=== PATIENT | male | born 1940 | race Caucasian/White ===

== ENCOUNTER 2022-11-01 16:26 | Inpatient (IN) | payer MEDICARE ==
[2022-11-01 16:35] LABS: BASOPHILS ABSOLUTE AUTO 0.04 K/uL (0.00-0.10); BASOPHILS PERCENT AUTO 0.5 % (0.1-1.3); EOSINOPHILS ABSOLUTE AUTO 0.24 K/uL (0.00-0.40); EOSINOPHILS PERCENT AUTO 3.3 % (0.0-5.4); HEMATOCRIT 36.3 % (38.4-49.7); HEMOGLOBIN 12.1 g/dL (12.9-16.9); IMMATURE GRAN ABSOLUTE AUTO 0.04 K/uL (0.00-0.23); IMMATURE GRAN PERCENT AUTO 0.5 % (0.0-0.7); LYMPHOCYTES ABSOLUTE AUTO 1.65 K/uL (0.8-3.3); LYMPHOCYTES PERCENT AUTO 22.6 % (11.4-47.7); MEAN CORPUSCULAR HEMOGLOBIN 29.3 pg (31.6-35.5); MEAN CORPUSCULAR HGB CONC 33.3 g/dL (31.6-35.5); MEAN CORPUSCULAR VOLUME 87.9 fL (81.4-99.0); MONOCYTES ABSOLUTE AUTO 0.64 K/uL (0.20-0.90); MONOCYTES PERCENT AUTO 8.8 % (3.3-12.6); NEUTROPHILS ABSOLUTE AUTO 4.69 K/uL (1.0-7.6); NEUTROPHILS PERCENT AUTO 64.3 % (40.0-78.1); PLATELET COUNT,PLT 257 K/uL (130-375); RED BLOOD CELL COUNT 4.13 M/uL (4.14-5.76); WHITE BLOOD CELL COUNT,WBC 7.3 K/uL (3.2-11.0)
[2022-11-01 16:55] LABS: A/G RATIO 0.8 (1.2-2.2); ALANINE AMINOTRANSFERASE,ALT 22 U/L (12-78); ALBUMIN 3.5 g/dL (3.4-5.0); ALKALINE PHOSPHATASE 90 U/L (46-116); ASPARTATE AMNIOTRANSFERASE,AST 24 U/L (15-37); BILIRUBIN TOTAL 0.6 mg/dL (0.2-1.0); BLOOD UREA NITROGEN,BUN 18 mg/dL (7-18); CALCIUM 8.8 mg/dL (8.5-10.1); CARBON DIOXIDE,CO2 29 mmol/L (21-32); CHLORIDE,CL 100 mmol/L (100-108); CREATININE 1.1 mg/dL (0.8-1.3); EST CRCL DRUG DOSING (CG) 55.85 mL/min; ESTIMATED GFR 67 mL/min (>60); GLUCOSE RANDOM 161 mg/dL (74-106); POTASSIUM,K 3.6 mmol/L (3.6-5.2); PROTEIN TOTAL,TP 7.7 g/dL (6.4-8.2); SODIUM,NA 137 mmol/L (140-148)
[2022-11-01 16:56] LABS: ANION GAP 11.6 mmol/L (5.0-14.0)
[2022-11-01 16:58] LABS: PROTHROMBIN TIME 10.5 sec (9.2-10.6); PTT,PARTIAL THROMBOPLSTIN TIME 23.8 sec (21.8-27.3)
[2022-11-01] MEDS ORDERED: fentaNYL 50 MCG/ML SDV IVPUSH ONE (17:38)
[2022-11-01] MEDS ORDERED: Midazolam 1 MG/ML 5 ML SDV IVPUSH ONE (18:43)
[2022-11-01] MEDS ORDERED: Midazolam 1 MG/ML 5 ML SDV ONE (18:45)
[2022-11-01] MEDS ORDERED: Lidocaine 1% 50 ML MDV INJECT ONE (18:59)
[2022-11-01] MEDS: Lidocaine 1% 10 ML MDV ONE ×2 (19:02→19:05)
[2022-11-01] MEDS ORDERED: HYDROmorphone 0.5 MG/0.5 ML Syringe IVPUSH ONE (19:07)
[2022-11-01] MEDS ORDERED: Acetaminophen 1,000 MG in Premix Bag 1 BAG IV ONE (19:17)
[2022-11-01] MEDS ORDERED: Lactated Ringers 1,000 ML IV SCH (20:00)
[2022-11-01] MEDS ORDERED: HYDROmorphone 0.5 MG/0.5 ML Syringe IVPUSH PRN (20:00)
[2022-11-01] MEDS ORDERED: HYDROmorphone 1 MG/ML Syringe IVPUSH PRN (20:01)
[2022-11-01] MEDS: ceFAZolin 1 GM in Sodium Chloride 0.9% 50 ML IV SCH (20:51)
[2022-11-01] MEDS: Ondansetron 4 MG/2 ML SDV IVPUSH SCH (20:51)
[2022-11-01] MEDS: traZODone 50 MG Tab PO SCH (21:03)
[2022-11-01] MEDS: atorvaSTATin 20 MG Tab PO SCH (21:03)
[2022-11-02] MEDS: Acetaminophen 325 MG Tab PO SCH ×4 (04:34→21:06)
[2022-11-02] MEDS: Ondansetron 4 MG/2 ML SDV IVPUSH SCH ×3 (04:34→20:30)
[2022-11-02] MEDS: ceFAZolin 1 GM in Sodium Chloride 0.9% 50 ML IV SCH (04:39)
[2022-11-02] MEDS: HYDROmorphone 2 MG Tab PO PRN ×4 (07:28→21:34)
[2022-11-02] MEDS: Losartan 25 MG Tab PO SCH (08:51)
[2022-11-02] MEDS: Aspirin 81 MG Tab.EC PO SCH (08:52)
[2022-11-02] MEDS: Hydrochlorothiazide 12.5 MG Cap PO SCH (08:52)
[2022-11-02] MEDS: ceFAZolin 1 GM in Premix Bag 1 BAG IV SCH ×2 (11:37→20:18)
[2022-11-02] MEDS: Ibuprofen 400 MG Tab PO SCH ×2 (13:32→20:19)
[2022-11-02] MEDS: traZODone 50 MG Tab PO SCH (20:20)
[2022-11-02] MEDS: atorvaSTATin 20 MG Tab PO SCH (20:20)
[2022-11-03] MEDS: Ondansetron 4 MG/2 ML SDV IVPUSH SCH ×2 (00:03→04:44)
[2022-11-03] MEDS: Ibuprofen 400 MG Tab PO SCH ×2 (02:00→08:12)
[2022-11-03] MEDS: Acetaminophen 325 MG Tab PO SCH (04:39)
[2022-11-03] MEDS: ceFAZolin 1 GM in Premix Bag 1 BAG IV SCH (04:39)
[2022-11-03] MEDS: Aspirin 81 MG Tab.EC PO SCH (09:18)
[2022-11-03] MEDS: Hydrochlorothiazide 12.5 MG Cap PO SCH (09:18)
[2022-11-03] MEDS: Losartan 25 MG Tab PO SCH (09:18)
== END 2022-11-03 10:18 | disposition home or self-care (01) | DRG 200 ==
LOC: JP.ED 16:26 → JP.ICU 19:31
PROVIDERS: ADMIT Surgery; ATTEND Surgery
PROC: 0W9B30Z Drainage of Left Pleural Cavity with Drainage Device, Percutaneous Approach (ICD-10-PCS; principal; 2022-11-01)
DX: S27.0XXA Traumatic pneumothorax, initial encounter (principal); J90 Pleural effusion, not elsewhere classified; U07.1 COVID-19; R40.2412 Glasgow coma scale score 13-15, at arrival to emergency department; S22.42XA Multiple fractures of ribs, left side, initial encounter for closed fracture; W18.39XA Other fall on same level, initial encounter; I10 Essential (primary) hypertension; E78.00 Pure hypercholesterolemia, unspecified; Z86.16 Personal history of COVID-19; Z98.49 Cataract extraction status, unspecified eye; W17.4XXA Fall from dock, initial encounter; Z98.890 Other specified postprocedural states; Z90.89 Acquired absence of other organs; Z79.82 Long term (current) use of aspirin; Z87.891 Personal history of nicotine dependence; Z79.899 Other long term (current) drug therapy; Y92.89 Other specified places as the place of occurrence of the external cause
CPT/HCPCS: 36415; 71045; 71045-26; 71250; 80053; 80307; 85025; 85610; 85730; 96374; 96375; 99285; 99285-25; A9270-GY; J0131; J0690; J1170; J2001; J2250; J2405; J3010; J3490; J7120; U0002